=== PATIENT | female | born 1945 | race Caucasian/White ===

== ENCOUNTER 2020-08-14 22:57 | Observation (INO) | payer MEDICARE ==
[~2020-08-14] VITALS: Ht 160 cm; Wt 111.2 kg
--- NOTE | 2020-08-14 23:00 | PHYS DOC ---
Past History Past Medical History: Arthritis, Cancer Past Surgical History Left mastectomy 2002 General Adult HPI: HPI: "...I ve been so short of breath.. I can't walk across the room with out getting really short of breath.. and my heart gets racing...'" Patient is a 75 year old female who presents with above hx and complaints of increased dyspnea, cough, generalized fatigue and weakness. Denies any fever or chills. Patient denies any travel or specific ill contacts. Patient has noticed some dark stools. Patient has past medical history of breast cancers treated with mastectomy and chemotherapy in 2002. Patient denies any history of cardiac issues. History of hypertension. Patient has history of elevated glucose levels-diabetes. The patient pt. follow s with Dr. Vazquez Review of Systems: Review of Systems: Constitutional: Denies fever or chills Eyes: Denies change in visual acuity HENT: Denies nasal congestion or sore throat Respiratory: Complaints of dyspnea -shortness of breath Cardiovascular: Complaints of tachycardia GI: Denies abdominal pain, nausea, vomiting, bloody stools or diarrhea : Denies dysuria Musculoskeletal: Denies back pain or joint pain Integument: Denies rash Neurologic: Denies headache, focal weakness or sensory changes Endocrine: Denies polyuria or polydipsia Lymphatic: Denies swollen glands Psychiatric: Denies depression or anxiety Family History: Family History: Noncontributory Current Medications: Current Meds: See nursing for home meds Allergies: Allergies: Allergic to hydrocodone and lisinopril Physical Exam: PE: Constitutional: Moderate acute distress, non-toxic appearance. [] HENT: Normocephalic, atraumatic, bilateral external ears normal, oropharynx moist, no oral exudates, nose normal. [] Eyes: PERRLA, EOMI, conjunctiva pale, no discharge. [] Neck: Normal range of motion, no tenderness, supple, no stridor. [] Cardiovascular: Tachycardia heart rate regular rhythm, no murmur [] Lungs & Thorax: Bilateral breath sounds equal at apex auscultation. The patient has mastectomy scar on left. Some basilar crackles. Abdomen: Bowel sounds normal, soft, no tenderness, no masses, no pulsatile masses. Rectal no gross blood Skin: Warm, dry, no erythema, no rash. Pale Back: No tenderness, no CVA tenderness. [] Extremities: No tenderness, no cyanosis, no clubbing, ROM intact, no edema. Arthritic changes Neurologic: Alert and oriented X 3, normal motor function, normal sensory function, no focal deficits noted. [] Psychologic: Affect anxious, judgement normal, mood normal. [] EKG: EKG: My interpretation of EKG shows a sinus tachycardia. No findings of acute STEMI or morphology other than a tachycardia [] Radiology/Procedures: Radiology/Procedures: [][address] [address] IMAGING REPORT Signed PATIENT: WENDI ARRIAGA ACCOUNT: [id number] : 1945 LOCATION: ER AGE: 75 SEX: F EXAM STATUS: REG ER ORD. PHYSICIAN: MC MINER MD REASON: dyspnea PROCEDURE: PORTABLE CHEST 1V PORTABLE CHEST 1V INDICATION: dyspnea / Spl. Instructions: / History: . COMPARISON STUDY: 10/23/2006. FINDINGS: Lungs: Normal lung volume. Mild right mid lung opacities. The tracheobronchial tree and hilar structures are normal. Pleura: No pleural effusion or pneumothorax. Heart and Mediastinum: The cardiomediastinal silhouette is normal. The great vessels of the thorax are normal. Bones and Soft Tissues: The bones and soft tissues are within normal limits. IMPRESSION: Mild right mid lung opacities, which may represent an infectious/inflammatory process. Electronically signed by: Ibrahima Blackwood MD (08/15/2020 12:28 AM) [facility] DICTATED AND SIGNED BY: IBRAHIMA BLACKWOOD MD DATE: 08/15/20 0028 CC: JAYJAY BERNABE MD; MC MINER MD ~MTH0 0 Heart Score: HEART Score for Chest Pain: HEART Score for Chest Pain Response (Comments) Value History Slighlty/Non-Suspicious 0 ECG Nonspecific Repolarizatio 1 Age > 65 2 Risk Factors 1 or 2 Risk Factors 1 Troponin < Normal Limit 0 Total 4 Risk Factors: Risk Factors: DM, Current or recent (<one month) smoker, HTN, HLP, family history of CAD, obesity. Risk Scores: Score 0 - 3: 2.5% MACE over next 6 weeks - Discharge Home Score 4 - 6: 20.3% MACE over next 6 weeks - Admit for Clinical Observation Score 7 - 10: 72.7% MACE over next 6 weeks - Early Invasive Strategies Course & Med Decision Making: Course & Med Decision Making Pertinent Labs and Imaging studies reviewed. (See chart for details) Discussed presentation, testing and treatment plan with Dr. Leblanc. Plan admit and transfuse PRBC. Retic pending. Monitor for GI Bleed. Impression; 1. Dyspnea 2. Anemia hemoglobin 6.2 3. Hypoxia 4. Urinary tract infection 5. Diabetes glucose 196 6. Basilar infiltrates [] Dragon Disclaimer: Crystal Disclaimer: This electronic medical record was generated, in whole or in part, using a voice recognition dictation system. Departure Departure: Referrals: JAYJAY BERNABE MD (PCP) Crystal Disclaimer This chart was dictated in whole or in part using Voice Recognition software in a busy, high-work load, and often noisy Emergency Department environment. It may contain unintended and wholly unrecognized errors or omissions. MC MINER MD Aug 14, 2020 23:00
[2020-08-14] MEDS ORDERED: IV RINGERS SOLUTION,LACTATED 1,000 ML IV SCH (23:30)
[2020-08-14] MEDS ORDERED: ASPIRIN CHEWABLE 81 MG TABLET. PO ONE (23:45)
[2020-08-15] VITALS (9 sets, daily range): BP systolic 105–115; BP diastolic 52–75
[2020-08-15 00:17] LABS: BACTERIA,URINE FEW /HPF (0-FEW); BILIRUBIN,URINE NEG (NEG); CLARITY,URINE HAZY; COLOR,URINE YELLOW; GLUCOSE,URINE NEG (NEG); NITRITE,URINE NEG (NEG); RBC,URINE 0 /HPF (0-2); SQUAMOUS EPITHELIAL CELL,UR OCC /LPF; UROBILINOGEN,URINE 0.2 mg/dL (0.2 mg/dL); WBC,URINE >40 /HPF (0-4)
--- NOTE | 2020-08-15 00:19 | EKG ---
[facility] ED [facility] [place] [id number] Test Date: 2020-08-14 Test Time: 23:25:26 Pat Name: WENDI ARRIAGA Department: Room: Gender: F Kiln Hand: : 1945 Requested By: MC MINER Order Number: [id number] Reading MD: Elbert Johnson Measurements Intervals Rowena Rate: 123 P: 45 OH: 158 QRS: 39 QRSD: 76 T: 51 QT: 306 QTc: 443 Interpretive Statements SINUS TACHYCARDIA Electronically Signed On 08-16-2020 10:44:27 [employer] by Elbert Johnson
[2020-08-15 00:20] LABS: BASO # 0.1 x10^3/uL (0.0-0.2); BASO % 1 % (0-3); EOS # 0.1 x10^3/uL (0.0-0.7); EOS % 1 % (0-3); HEMATOCRIT 20.5 % (36.0-47.0); LYMPH # 1.5 x10^3/uL (1.0-4.8); LYMPH % 17 % (24-48); MEAN CORPUSCULAR HEMOGLOBIN 28 pg (25-35); MEAN CORPUSCULAR HGB CONC 30 g/dL (31-37); MEAN CORPUSCULAR VOLUME 91 fL (79-100); MONO # 0.7 x10^3/uL (0.0-1.1); MONO % 9 % (0-9); NEUT # 6.2 x10^3uL (1.8-7.7); NEUT % 73 % (31-73); PLATELET COUNT 226 x10^3/uL (140-400); RED BLOOD COUNT 2.26 x10^6/uL (3.50-5.40); WHITE BLOOD COUNT 8.5 x10^3/uL (4.0-11.0)
[2020-08-15 00:22] LABS: BARBITURATES NEG (NEG); BENZODIAZEPINES NEG (NEG); CANNABINOIDS NEG (NEG); COCAINE NEG (NEG); METHADONE NEG (NEG); OPIATES NEG (NEG); PHENCYCLIDINE NEG (NEG)
[2020-08-15 00:24] LABS: AMPHETAMINE/METHAMPHETAMINE NEG (NEG)
[2020-08-15 00:28] LABS: CALCIUM 8.1 mg/dL (8.5-10.1); CREATININE 0.8 mg/dL (0.6-1.0); GFR 70.1
[2020-08-15 00:30] LABS: HEMOGLOBIN 6.2 g/dL (12.0-15.5)
--- NOTE | 2020-08-15 00:30 | RAD ---
PORTABLE CHEST 1V INDICATION: dyspnea / Spl. Instructions: / History: . COMPARISON STUDY: 10/23/2006. FINDINGS: Lungs: Normal lung volume. Mild right mid lung opacities. The tracheobronchial tree and hilar structures are normal. Pleura: No pleural effusion or pneumothorax. Heart and Mediastinum: The cardiomediastinal silhouette is normal. The great vessels of the thorax are normal. Bones and Soft Tissues: The bones and soft tissues are within normal limits. IMPRESSION: Mild right mid lung opacities, which may represent an infectious/inflammatory process. Electronically signed by: Vasiliy Blackwood MD (08/15/2020 12:28 AM) [facility]
[2020-08-15 00:41] LABS: ALBUMIN 2.8 g/dL (3.4-5.0); DIRECT BILIRUBIN 0.1 mg/dL (0.0-0.2); MAGNESIUM 1.9 mg/dL (1.8-2.4); TOTAL BILIRUBIN 0.2 mg/dL (0.2-1.0); TOTAL PROTEIN 6.7 g/dL (6.4-8.2)
[2020-08-15] MEDS ORDERED: ACETAMINOPHEN 500 MG TABLET PO ONE (00:45)
[2020-08-15] MEDS ORDERED: CEPHALEXIN 250 MG CAPSULE PO ONE (00:45)
[2020-08-15] MEDS ORDERED: FAMOTIDINE 20 MG/2 ML VIAL IVP ONE (00:45)
[2020-08-15] MEDS ORDERED: diphenhydrAMINE 50 MG/ML VIAL IVP ONE (01:00)
[2020-08-15] MEDS ORDERED: INSU100I27 SQ (04:06)
[2020-08-15] MEDS ORDERED: PRAV40TA2 PO (04:06)
[2020-08-15] MEDS ORDERED: LOSA100T14 PO (04:06)
[2020-08-15] MEDS ORDERED: ACET325T9 PO (04:06)
[2020-08-15] MEDS ORDERED: SITA50TA PO (04:06)
[2020-08-15] MEDS ORDERED: METF10007 PO (04:06)
[2020-08-15] MEDS ORDERED: ASPI-630 PO (04:06)
[2020-08-15 08:53] LABS: BASO % 0 % (0-3); EOS # 0.2 x10^3/uL (0.0-0.7); EOS % 1 % (0-3); HEMATOCRIT 24.2 % (36.0-47.0); HEMOGLOBIN 7.5 g/dL (12.0-15.5); LYMPH # 1.7 x10^3/uL (1.0-4.8); LYMPH % 14 % (24-48); MEAN CORPUSCULAR HEMOGLOBIN 27 pg (25-35); MEAN CORPUSCULAR HGB CONC 31 g/dL (31-37); MEAN CORPUSCULAR VOLUME 88 fL (79-100); MONO # 1.1 x10^3/uL (0.0-1.1); MONO % 9 % (0-9); NEUT # 9.6 x10^3uL (1.8-7.7); NEUT % 76 % (31-73); PLATELET COUNT 237 x10^3/uL (140-400); RED BLOOD COUNT 2.75 x10^6/uL (3.50-5.40); WHITE BLOOD COUNT 12.7 x10^3/uL (4.0-11.0)
[2020-08-15] MEDS ORDERED: ONDANSETRON PF 4 MG/2 ML VIAL. IVP PRN (09:00)
[2020-08-15] MEDS ORDERED: ACETAMINOPHEN 325 MG TABLET PO PRN (09:15)
[2020-08-15] MEDS ORDERED: PANTOPRAZOLE 40 MG TABLET. PO SCH (09:30)
[2020-08-15 09:50] LABS: % BANDS 1 % (0-9); % EOS 2 % (0-5); % LYMPHS 13 % (24-48); % MONOS 6 % (0-10); % SEGS 78 % (35-66)
[2020-08-15 09:51] LABS: ANISOCYTOSIS MOD; HYPOCHROMIA MOD; NUCLEATED RBC 1; PLT ESTIMATE ADEQUATE (ADEQUATE); POLYCHROMASIA MOD
[2020-08-15 09:52] LABS: TOXIC GRANULATION PRESENT
[2020-08-15 09:53] LABS: OVALOCYTES OCC
--- NOTE | 2020-08-15 12:30 | HP ---
ADMIT DATE: 08/15/2020 ATTENDING PHYSICIAN: Dr. Head CHIEF COMPLAINT: Weakness. HISTORY OF PRESENT ILLNESS: The patient is a very alert, active 75-year-old female admitted through the ED. For the last several weeks, she gets short of breath with any exertion, her heart gets racing. She is very pale. She was found to have a hemoglobin of 6.2 g/dL. She had denied any recent COVID contacts. She has noticed some black tarry stool, painless. In the ED, her hemoglobin was 6.[address] Abraham's office called and said that her pervious hemoglobin a month ago was 15 g. She is most likely having melena from an upper GI bleed. She was admitted for transfusion and further evaluation. PAST MEDICAL HISTORY: Significant for breast cancer resulting in a left mastectomy in 2002. She has had subsequent chemotherapy that is in remission. She is diabetic. She has hypertension. She has degenerative arthritis. ALLERGIES: She has allergies to HYDROCODONE and LISINOPRIL, exact reactions unclear. CURRENT MEDICINES: Include metformin, Januvia, amlodipine along with insulin. She also takes aspirin, losartan, Zocor and again the Januvia 50 mg daily. SOCIAL HISTORY: She is a nonsmoker, nondrinker. FAMILY HISTORY: Noncontributory. REVIEW OF SYSTEMS: Significant for the gradual weakness. No chest pain. She has had black tarry stools. She denied any hematemesis. She denied any epigastric pain, nausea, vomiting, diarrhea. No bloody stools. All other systems reviewed and determined to be negative. PHYSICAL EXAMINATION: GENERAL: When I saw her, this is a pleasant female. INITIAL VITAL SIGNS: Showed a blood pressure of 110/70, pulse 99 and regular, temperature 98.1 degrees Fahrenheit. She was afebrile. HEENT: Head is without trauma. Pupils are reactive. Sclerae nonicteric. Oropharynx is clear. NECK: Supple, no bruits. LUNGS: Good breath sounds. CARDIOVASCULAR: Showed regular heart tones. No gallops. ABDOMEN: Soft, obese, protuberant. No organomegaly. Bowel sounds are hypoactive. EXTREMITIES: Showed no cyanosis or edema. NEUROLOGIC: Focally intact. Speech is fluent. Night Monitor intact. SKIN: Warm and dry, otherwise very pale. PERTINENT LABORATORY STUDIES: Hemoglobin today was 6.2 g/dL with a white count of 8500. The MCV is 91. Chemistry panel stable BUN and creatinine, electrolytes, creatinine 0.8. Cardiac enzymes negative for coronary ischemia. Nonfasting blood sugar 131. ASSESSMENT: 1. A 75-year-old female with melanotic stools. 2. Blood loss anemia, acute. 3. History of breast cancer with left mastectomy. 4. Essential hypertension, currently normotensive. 5. Type 2 diabetes. 6. Degenerative arthritis. PLAN: 1. Admit to the inpatient unit. 2. Transfusion of packed red cells and increase oxygen carrying capacity. This has already been ordered before I saw her. 3. She is not any anticoagulants, we will hold her blood pressure meds for now. 4. I will try to get her admitted to [place] eventually for GI evaluation. I believe she needs panendoscopy. NORBERT HEAD MD DR: DONNA/sameera JOB#: [id number] / [id number] Rafa Delgado MD
[2020-08-15] MEDS ORDERED: metFORMIN 500 MG TABLET PO SCH (17:00)
[2020-08-15 18:02] LABS: THYROID STIM HORMONE (TSH) 1.425 uIU/mL (0.358-3.740)
[2020-08-15] MEDS ORDERED: INSULIN GLARGINE SYRINGE. SQ SCH (21:00)
--- NOTE | 2020-08-16 00:07 | DS ---
DATE OF DISCHARGE: 08/15/2020 ATTENDING PHYSICIAN: Dr. Head. FINAL DISCHARGE DIAGNOSES: 1. Melena. 2. Acute blood loss anemia. 3. History of breast cancer with left mastectomy. 4. Essential hypertension, currently normotensive. 5. Type 2 diabetes. 6. Degenerative arthritis. HISTORY AND PHYSICAL: The patient is a pleasant 75-year-old female admitted through the ED with weakness, shortness of breath with exertion and some palpitations. She is very pale. She was found to have a hemoglobin of 6.2 g/dL, just a month before it had been as high as 15 g/dL. She denied any recent anticoagulation, nonsteroidal use. She does not drink any alcohol. She had noticed black tarry stool that is painless. PHYSICAL EXAMINATION: Please see my dictated note. PERTINENT LABORATORY AND X-RAY STUDIES: Admission CBC showed hemoglobin 6.2 g/dL, white count 8500. After infusion of 1 unit, it came up to 7.5 g/dL. Chemistry panel, blood sugars were stable at 131. Cardiac enzymes negative for coronary ischemia. Her electrolytes within normal range. Creatinine was 0.8 mg percent. Transaminases and liver panel was unremarkable. COURSE IN THE HOSPITAL: The patient was admitted to the hospitalist service. She had her home meds restarted except for her losartan. We did give her 2 units of packed red cells to increase oxygen carrying capacity in this clearly symptomatic patient. We also continued proton pump inhibitor and her diabetes regimen. Later on the same day, I called my colleague, Dr. Patel, who was able to get her into [facility] for GI consultation. I believe that she needs panendoscopy. Therefore, arrangements were made for the patient and transfer by ambulance to [facility] for higher level of care to get subspecialty care and anticipate panendoscopy. Her discharge meds are as follows: She will continue her Tylenol, aspirin, Levemir insulin, metformin, pravastatin and Januvia dose is unchanged. For now, we temporarily held her losartan. Her prognosis is fair. She was discharged then from our hospital in stable condition with explicit instructions and followup care, to go to a [facility] for further GI evaluation. NORBERT HEAD MD DR: DONNA/sameera JOB#: [id number] / [id number] JAYJAY Diaz MD
[2020-08-16] MEDS ORDERED: LINAGLIPTIN 5 MG TABLET PO SCH (09:00)
[2020-08-16] MEDS ORDERED: LOSARTAN 50 MG TABLET. PO SCH (09:00)
== END 2020-08-15 13:06 | disposition short-term general hospital (02) ==
LOC: ER 22:57 → INTOOBSV 08-15 01:53 → 1 SOUTH 08-15 01:53
PROVIDERS: ADMIT Family Medicine; ATTEND Hospitalist
DX: K92.1 Melena (principal); R09.02 Hypoxemia; R06.00 Dyspnea, unspecified; D62 Acute posthemorrhagic anemia; E11.9 Type 2 diabetes mellitus without complications; M19.90 Unspecified osteoarthritis, unspecified site; N39.0 Urinary tract infection, site not specified; I10 Essential (primary) hypertension; Z98.890 Other specified postprocedural states; Z85.3 Personal history of malignant neoplasm of breast; Z79.82 Long term (current) use of aspirin; Z90.12 Acquired absence of left breast and nipple; Z79.899 Other long term (current) drug therapy
CPT/HCPCS: 36415; 36430; 71045; 80048; 80061; 80076; 80307; 81001; 82550; 82947; 83540; 83550; 83690; 83735; 83880; 84443; 84484; 85007; 85025; 85045; 85379; 85610; 85730; 86850; 86900; 86901; 86920; 87086; 93005; 96361; 96374; 96375; 99285; G0378; J1200; J3490; J7120; P9016; G0379

== ENCOUNTER → 2021-01-17 | Outpatient (CLI) | payer MEDICARE ==
[2020-08-15 11:09] VITALS: BP 115/72
[~2021-01-17] MED LIST: ACET325T9 PO; ASPI-630 PO; INSU100I27 SQ; LOSA100T14 PO; METF10007 PO; PRAV40TA2 PO; SITA50TA PO
--- NOTE | 2021-01-17 15:07 | RAD ---
EXAM: Dual energy x-ray absorptiometry (DEXA). HISTORY: Screening. COMPARISON: None available. TECHNIQUE: Dual energy x-ray absorptiometry of the lumbar spine and right hip was performed. Calcula tion of bone mineral density based on standard deviations above or below the expected young adult nor mal value (T-score) was completed. FINDINGS: The average bone mineral density in the 1st through 4th lumbar vertebrae is 1.448 g/cmxcm, corresponding with a T-score of 2.2. The average total bone mineral density in the right hip is 1.240 g/cmxcm, corresponding with a T-sco re of 2.3. IMPRESSION: Findings are within the range of normal bone density with relation of the spine and right hip. Note: Definitions established by the World Health Organization: 1. Normal: T-score is -1.0 or above. 2. Osteopenia: T-score is between -1.0 and -2.5 . 3. Osteoporosis: T-score is -2.5 or below. Electronically signed by: Esther Reyna MD (01/17/2021 3:04 PM) [id number]
--- NOTE | 2021-01-17 17:00 | RAD ---
CT LOW DOSE LUNG SCREEN INDICATION: HX OF NICOTINE DEPENDENCE QUIT IN 2007 COMPARISON STUDY: CTA chest 08/19/2012. TECHNIQUE: Unenhanced axial images were obtained through the lungs and upper abdomen using low dose technique. Coronal and sagittal multiplanar reformatted images were also obtained. PQRS compliance statement: One or more of the following individualized dose reduction techniques were utilized for this examinat ion: 1. Automated exposure control 2. Adjustment of the mA and/or kV according to patient size 3. Use of iterative reconstruction technique FINDINGS: Lung Nodules: Right upper lobe 5 mm solid nodule (series 5 image 109). Lungs and Airways: No pulmonary mass or consolidation. Centrilobular emphysema. Normal central airway s. Pleura: Normal pleural spaces. Heart and Mediastinum: The visualized portions of the thyroid gland are normal in size and attenuatio n. No axillary or supraclavicular lymphadenopathy. No mediastinal, hilar or retrocrural lymphadenopat hy. The heart and pericardium are within normal limits. The great vessels of the thorax are normal. Abdomen: The visualized abdominal organs demonstrate no abnormality. Bones and Soft Tissues: Left axillary surgical clips. Left mastectomy. Degenerative changes of the sp ine IMPRESSION: Right upper lobe 5 mm nodule. Lung-RADS Category: 2 Management Recommendation: Follow up low-dose chest CT in one year. Electronically signed by: Vasiliy Blackwood MD (01/17/2021 4:58 PM) [facility]
== END ==
LOC: CT 10:23
PROVIDERS: ATTEND Family Medicine
DX: R91.1 Solitary pulmonary nodule (principal); Z78.0 Asymptomatic menopausal state; J43.2 Centrilobular emphysema; Z87.891 Personal history of nicotine dependence
CPT/HCPCS: 71271; 77080

== ENCOUNTER → 2021-07-17 | Outpatient (CLI) | payer MEDICARE ==
[2020-08-15 11:09] VITALS: BP 115/72
--- NOTE | 2021-07-17 11:52 | RAD ---
EXAM: CT CHEST WITHOUT CONTRAST HISTORY: Lung nodules COMPARISON: CT chest 01/17/2021 TECHNIQUE: Helical CT of the chest performed without contrast. Coronal and sagittal reformats were o btained. One or more of the following individualized dose reduction techniques were utilized for this examinat ion: 1. Automated exposure control 2. Adjustment of the mA and/or kV according to patient size 3. Use of iterative reconstruction technique. FINDINGS: Thyroid gland and thoracic inlet: Unremarkable. Heart and great vessels: Heart is normal in size. No pericardial effusion. Thoracic aorta is normal i n caliber. Mediastinum and digna: Multiple small mediastinal lymph nodes are unchanged including a 1.1 cm short a xis AP window lymph node and 9 mm short axis precarinal lymph node. Lungs and pleura: A 5 mm nodule in the right upper lobe is unchanged (image 38). 3 mm nodule in the r ight upper lobe is unchanged (image 35). A 5 mm nodule in the right lower lobe is unchanged (image 42 ). A few additional scattered 2 to 3 mm pulmonary nodules are unchanged. There is mild emphysema. Mil d subpleural reticular changes in the bases, nonspecific. Chest wall and axillae: There are surgical clips in the left axilla. Surgical changes of left mastect asif. Upper abdomen: Unremarkable. Bones: No acute osseous abnormality. Unchanged mild thoracic kyphosis and degenerative disc disease. IMPRESSION: 1. Unchanged pulmonary nodules, the largest 2 measuring 5 mm in the right upper and lower lobe. Cons ider follow-up CT in 6-12 months. 2. Unchanged mild emphysema. Electronically signed by: Nicole Castellanos MD (07/17/2021 11:49 AM) [id number]
== END ==
LOC: CT 09:28
PROVIDERS: ATTEND Internal Medicine Pulmonary Disease
DX: R91.8 Other nonspecific abnormal finding of lung field (principal); J43.9 Emphysema, unspecified; M40.294 Other kyphosis, thoracic region; M51.34 Other intervertebral disc degeneration, thoracic region
CPT/HCPCS: 71250

== ENCOUNTER → 2021-07-24 | Outpatient (CLI) | payer MEDICARE ==
[2020-08-15 11:09] VITALS: BP 115/72
--- NOTE | 2021-07-24 12:43 | RAD ---
EXAM: AP view both knees DATE: 07/24/2021 11:21 AM INDICATION: Reason: BILATERAL KNEE PAIN / Spl. Instructions: / History: COMPARISON: No Prior FINDINGS: Left knee: Mild medial joint space narrowing with small tricompartmental osteophytes. Right knee: Severe medial joint space narrowing with tricompartmental osteophytes. IMPRESSION: 1. Bilateral knee joint osteoarthritis, greater on the right. 2. No acute fracture or dislocation. Electronically signed by: Teddy Sanchez MD (07/24/2021 12:41 PM) [id number]
== END ==
LOC: RAD 11:02
PROVIDERS: ATTEND Family Medicine
DX: M17.0 Bilateral primary osteoarthritis of knee (principal); M25.762 Osteophyte, left knee; M25.761 Osteophyte, right knee; M25.862 Other specified joint disorders, left knee; M25.861 Other specified joint disorders, right knee
CPT/HCPCS: 73565